=== PATIENT | female | born 1965 | race Caucasian/White ===

== ENCOUNTER 2019-11-08 16:13 | Emergency (ER) | payer BC, SELFPAY ==
[2019-11-08] VITALS (36 sets, daily range): BP systolic 155–191; BP diastolic 84–107; PULSE 82–105; RESP 11–28; O2SAT 95–100
--- NOTE | 2019-11-08 16:24 | W.ED.GENAD ---
Discharge Plan Disposition Patient Disposition: [facility] Condition: Poor Discharge Details Chief Complaint: Chest Pain Clinical Impression: Non-ST elevation MN (NSTEMI) Primary Care Provider: Camacho Urias ED Provider: Shelby Lamb Home Meds and New Rx's Prescriptions: No Action Prilosec OTC 20 mg tablet,delayed release (DR/EC) 20 mg PO HS Qty: 90 RF: 3 gabapentin 300 mg capsule 600 mg PO HS Qty: 270 RF: 3 clonazepam [Klonopin] 0.5 mg tablet 0.5 mg PO BID Qty: 180 RF: 0 Discharge Data Discharge Date/Time-TO BE ENTERED AT DEPARTURE: 11/08/19 20:05 Medical Decision Making Patient is a 54-year-old female presenting today with chief complaint of chest pain. Past medical history anxiety, restless leg. Family history of father and brother both having significant MN in a young age. She reports that symptoms have been present intermittently for the past week. Denies him having any exertional complaints. Does not note any specific etiology that can cause worsening of her symptoms. Is not having pain at this time. Has not noted to be worse with eating. Not worse with activity. States that she initially noted the discomfort when she was sedentary. Describes as a stabbing discomfort. Reports that he can radiate from the right upper quadrant into the central aspect of the chest. She denies any cough. No fevers or chills. No recent travel. Denies any leg pain. No edema. Has not never had discomfort like this historically. Pain can radiate into the arms. On exam, patient is resting comfortably. She does have a systolic murmur noted on cardiac exam. Sinus rhythm. Pulses are equal in all extremities. No abdominal pain on palpation. No chest pain on palpation. Lungs are clear in all rosas. Patient's symptoms are nonexertional. Seems to be more driven by epigastric discomfort than true chest pain. Patient does take omeprazole daily, plan to treat with GI cocktail. I have considered ACS, PE, dissection, versus other. Findings less likely but plan to screen accordingly. ECG reviewed by Dr. Fu, HR 83, NSR, no acute ischemic changes noted. Troponin 0.85, will consult with [facility]. Will start Plavix, Heparin, ASA per ACS protocol. Discussed the risk and benefits of anticoagulation with the patient. Shevoices understanding and would like to proceed. Reviewed PMH and find nno contraindications to these medications. Chest x-ray is reviewed by myself. Not appreciate any widened mediastinum, lungs appear clear. We will medically. Awaiting read from cardiology. Consulted with Dr. Gregory with cardiology at [facility]. He agrees to accept the patient in transfer. He did advise starting the patient on a nitroglycerin drip to help lower her blood pressure, goal of systolic blood pressure being less than 140. Dr. Ngo accepting physician. At the time the patient was transferred to [facility], a repeat troponin was performed and increased further to 1.45. Patient transferred to [facility] via EMS. Continues to be pain-free and resting comfortably. HPI General Mode of arrival: ambulatory. Date/Time Provider Initiated Documentation: 11/08/19 16:24. Limitations to Documentation: no limitations. Information obtained by: patient and RN notes reviewed. History of Present Illness 54 year old F presents to the emergency department with the chief complaint of epigastric and chest pain, described as mild (denies pain at this time, pain can be severe), Quality is described as stabbing, and is localized to the chest and abdomen. Patient reports no radiation. Patient started experiencing this week(s) (1) and it has been intermittent. No relieving factors improve symptom(s), No exacerbating factors reported . Patient notes no other symptoms., chest pain and loss of appetite (reports diminished appetite today); denies cough, diaphoresis, fever/chills, headaches, nausea/vomiting, shortness of breath, syncope and weakness. Patient did receive the following treatments prior to arrival, none Related Data Home Medications Medication Instructions Recorded Confirmed omeprazole magnesium 20 mg 20 mg PO HS #90 tab-cap 11/15/18 11/08/19 tablet,delayed release gabapentin 300 mg capsule 600 mg PO HS #270 tab-cap 06/14/19 11/08/19 clonazepam 0.5 mg tablet 0.5 mg PO BID #180 tab 09/17/19 11/08/19 Previous Rx's Medication Instructions Recorded omeprazole magnesium 20 mg 20 mg PO HS #90 tab-cap 11/15/18 tablet,delayed release gabapentin 300 mg capsule 600 mg PO HS #270 tab-cap 06/14/19 clonazepam 0.5 mg tablet 0.5 mg PO BID #180 tab 09/17/19 Allergies Allergy/AdvReac Type Severity Reaction Status Date / Time sertraline AdvReac Intermediate nausea Verified 11/08/19 16:21 oxycodone AdvReac VOMITING Verified 11/08/19 16:21 paroxetine AdvReac N/V Verified 11/08/19 16:21 General Stated Complaint: Chest Pain CABRERA: 3 Review of Systems Constitutional Constitutional: Reports as per HPI, Denies chills, Denies fever(s), Denies headache(s), Denies lethargy and Denies poor appetite Eyes Eyes: Denies change in vision ENT Ears, Nose, Mouth, and Throat: Denies dizziness and Denies headache(s) Cardiovascular Cardiovascular: Reports as per HPI, Reports chest pain (intermittent, now resolved), Denies chest pain with activity, Denies diaphoresis, Denies syncope, Denies rapid heart rate, Denies irregular heart rhythm, Denies leg edema, Denies lightheadedness, Denies radiating jaw, neck or arm pain, Denies palpitations, Denies dyspnea and Denies dyspnea on exertion Respiratory Respiratory: Reports as per HPI, Denies chest congestion, Denies cough, Denies pain on inspiration, Denies pain with cough, Denies dyspnea, Denies dyspnea on exertion and Denies wheezing Gastrointestinal Gastrointestinal: Reports as per HPI, Reports abdominal pain (epigastric), Denies diarrhea, Denies nausea and Denies vomiting Musculoskeletal Musculoskeletal: Reports as per HPI and Denies back pain Integumentary/Breasts Skin/Breast: Reports as per HPI and Denies rash Neurologic Neurologic: Reports as per HPI, Denies dizziness, Denies syncope and Denies headache(s) Endocrine Endocrine: Denies palpitations Allergic/Immunologic Allergic/Immunologic: Denies wheezing PFSH Surgical History section X 2 Ligation of fallopian tube Family History (Updated 10/14/19 @ 10:57 by Masoud Aragon) Mother , age 76 COPD (chronic obstructive pulmonary disease) Father Myocardial infarction Brother Heart disease Lung cancer Sister Stomach cancer Sister Breast cancer stage 4 Brother Depression Son Substance abuse in recovery since 2010 Daughter No problems noted. Maternal Grandfather , in his 60s No problems noted. Paternal Grandfather , in his 90s No problems noted. Maternal Grandmother , in her 70s No problems noted. Paternal Grandmother , Age 93 No problems noted. Social History Smoking/Tobacco Use Status: Former Tobacco Use Quit Date: 11/06/82 Tobacco: How many years used: 37 Alcohol Intake: never Drug use: Never Substance use type: former substance user Date of last use: as a teen/young adult and marijuana Details: has used marijuana at bedtime to sleep 2 weeks ago Caregiver/Support person: No Household members: children Communication Needs: None Pets and animals: Yes Pets and animals: dog(s) Sexually active: No Do you think of yourself as: straight/heterosexual Current gender identity: female What is your relationship status?: How often do you talk on the phone with friends or family?: three or more times per week How often do you get together with friends or relatives?: three or more times per week How often do you attend sikhism or protestant services?: decline to answer Do you belong to any clubs or organized social groups?: no Panel score (0-1 are the most socially isolated patients): 1 What type of physical activity do you participate in: walking Snow/Tenriism: Zoroastrian Special snow needs: No Seatbelt use: always Helmet use: Yes Helmet use: sometimes Drive intox 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 Do you feel safe at home: Yes Do you feel safe in your relationship?: Yes Exam Const General: cooperative, healthy appearing, comfortable, no acute distress and well developed Nutritional Appearance: well nourished and overweight Orientation: alert, awake and oriented x3 HENMT Head: normal to inspection Ears: hearing grossly normal bilaterally Mouth: moist mucous membranes Chest Chest: normal inspection of the chest, normal palpation of entire chest wall and no crepitus Resp Effort & Inspection: normal respiratory effort, able to speak in complete sentences and no respiratory distress Auscultation: clear to auscultation bilaterally, no rales, no rhonchi and no wheezes Cardio Rate: regular rate Rhythm: regular rhythm Heart Sounds: S1 normal and S2 normal GI Inspection: normal to inspection, no edema, non-distended and obesity Palpation: soft, no hepatosplenomegaly, not firm, no guarding, not rigid and nontender Auscultation: normal bowel sounds Skin General skin exam: no rashes or lesions noted Trauma: no lacerations or abrasions Neuro General: alert, awake and oriented x3 Cognition: normal cognition Speech: speech normal Gait: normal gait Extrem General: normal to inspection, normal capillary refill, no pedal edema, no calf tenderness and normal gait Psych Appearance: grossly normal and well kempt Mental Status: mental status grossly normal Speech and Movement: speech and movement normal Course Vital Signs Vital signs: Vital Signs Pulse 92 H 11/08/19 16:17 Respiratory Rate 18 11/08/19 16:17 Blood Pressure 187/107 H 11/08/19 16:17 Pulse Oximetry 100 11/08/19 16:17 Pulse 92 H 11/08/19 16:17 Respiratory Rate 18 11/08/19 16:17 Blood Pressure 187/107 H 11/08/19 16:17 Pulse Oximetry 100 11/08/19 16:17 Oxygen Delivery Method Room Air 11/08/19 16:17 Oxygen Flow Rate 0 11/08/19 16:17 Pain Level 2 11/08/19 16:17
[2019-11-08 17:05] LABS: Abs Immature Grans 0.02 k/cumm (0.0-0.09); Absolute Basophil Count 0.02 k/cumm (0.0-0.2); Absolute Eosinophil Count 0.16 k/cumm (0.0-0.7); Absolute Lymphocyte Count 2.08 k/cumm (1.2-3.4); Absolute Monocyte Count 0.69 k/cumm (0.11-0.7); Absolute Neutrophil Count 4.99 k/cumm (1.2-6.7); Basophils % 0.3; HCT 32.1 % (36.0-46.0); HGB 9.3 g/dL (12.0-15.5); Immature Grans % 0.3 %; Lymphocytes % 26.1; Mean Corpuscular Hemoglobin 19.5 pg (27.0-33.0); Mean Corpuscular Volume 67.4 fL (80-95); Mean Platelet Volume 9.5 fL (8.0-11.0); Monocytes % 8.7; Neutrophils % 62.6; Platelet Count 331 x1000/uL (130-400); RBC 4.76 m/cumm (4.00-5.20); RBC Distribution Width 19.5 % (11.7-14.6); White Blood Cell Count 7.96 k/cumm (4.4-10.8)
--- NOTE | 2019-11-08 17:10 | DI.RAD_ITS ---
EXAM: XR CHEST 2V PA LATERAL INDICATION: CP. COMPARISON: No exams were available for comparison TECHNIQUE: 2D digital imaging was performed. FINDINGS: Heart size is normal. Aorta is mildly tortuous. Lungs appear clear. IMPRESSION: No acute abnormality.
[2019-11-08 17:11] LABS: Anisocytosis 2+; Diff Comment RBC Morph Reviewed
[2019-11-08 17:12] LABS: Microcytosis 3+
[2019-11-08 17:17] LABS: ALT 25 U/L (14-59); AST 28 U/L (15-37); Albumin 3.7 g/dL (3.4-5.0); Alkaline Phosphatase 83 U/L (46-116); Anion Gap 10.6 mmol/L (3-11); BUN 13 mg/dL (7-18); Bilirubin, Total 0.3 mg/dL (0.2-1.0); CO2 27.4 mmol/L (21.0-32.0); CREATININE 0.77 mg/dL (0.55-1.02); Calcium 8.6 mg/dL (8.5-10.1); Chloride 102 mmol/L (98-107); Glucose 89 mg/dL (74-106); Potassium 3.7 mmol/L (3.5-5.1); Sodium 140 mmol/L (136-145); Total Protein 8.1 g/dL (6.4-8.2)
[2019-11-08 17:18] LABS: Troponin I 0.85 ng/Ml (<0.06)
[2019-11-08 17:38] LABS: PTT Activated 24.8 sec (21.0-31.4); Prothrombin Time 10.4 sec (9.3-11.0)
[2019-11-08] MEDS: Aspirin 81 MG CHEW 324 MG CH (17:40)
[2019-11-08] MEDS: Clopidogrel 300 MG TAB PO (17:40)
--- NOTE | 2019-11-08 17:55 | DI.VRAD_ITS ---
PROCEDURE INFORMATION: Exam: XR Chest, 2 Views Exam date and time: 11/08/2019 5:15 PM Age: 54 years old Clinical indication: Other: Cp TECHNIQUE: Imaging protocol: XR of the chest Views: 2 views. COMPARISON: CR ABD FLAT UPRIGHT PA CHEST 12/08/2014 7:17 PM FINDINGS: Lungs: Unremarkable. No consolidation. Pleural space: Unremarkable. No pleural effusion. No pneumothorax. Heart/Mediastinum: Unremarkable. No cardiomegaly. Bones/joints: Unremarkable. IMPRESSION: No acute findings. Dictated and Authenticated by: Niraj Bae MD. Ordering:CICI Ryan MD
[2019-11-08 19:53] LABS: Troponin I 1.45 ng/Ml (<0.06)
== END 2019-11-08 20:05 | disposition short-term general hospital (02) ==
LOC: ER 16:42
PROVIDERS: Emergency Provider Physician Assistant; PCP Emergency Medicine
DX: I21.4 Non-ST elevation (NSTEMI) myocardial infarction (principal); R03.0 Elevated blood-pressure reading, without diagnosis of hypertension
CPT/HCPCS: 80053; 93005; 96365; 96366; 96376; 99285; 71046; 83735; 84484; 85025; 85610; 85730; 93010

== ENCOUNTER 2019-11-13 07:00 | Outpatient (CLI) | payer BC, SELFPAY ==
[2019-11-13 10:34] LABS: Abs Immature Grans 0.09 k/cumm (0.0-0.09); Absolute Basophil Count 0.04 k/cumm (0.0-0.2); Absolute Eosinophil Count 0.08 k/cumm (0.0-0.7); Absolute Lymphocyte Count 1.98 k/cumm (1.2-3.4); Absolute Monocyte Count 0.81 k/cumm (0.11-0.7); Basophils % 0.3; Eosinophils % 0.7; HCT 36.5 % (36.0-46.0); HGB 10.8 g/dL (12.0-15.5); Immature Grans % 0.8 %; Lymphocytes % 16.9; Mean Corp. HGB Concentration 29.6 g/dL (32.0-36.0); Mean Corpuscular Volume 67.5 fL (80-95); Mean Platelet Volume 9.8 fL (8.0-11.0); Monocytes % 6.9; Neutrophils % 74.4; RBC 5.41 m/cumm (4.00-5.20); RBC Distribution Width 20.8 % (11.7-14.6); White Blood Cell Count 11.74 k/cumm (4.4-10.8)
[2019-11-13 10:35] LABS: Absolute Neutrophil Count 8.73 k/cumm (1.2-6.7)
[2019-11-13 11:18] LABS: Iron 23 ug/dL (50-170); Total Iron Binding Capacity 445 ug/dL (250-450); Transferrin Sat 5 % (15-50)
[2019-11-13 11:32] LABS: Ferritin 9 ng/mL (8-252)
[2019-11-13 11:55] LABS: Platelet Count 404 x1000/uL (130-400)
[2019-11-13 11:56] LABS: Anisocytosis 2+; Diff Comment RBC Morph Reviewed; Hypochromasia 3+; Microcytosis 3+; Polychromasia Present
[2019-11-21 13:41] LABS: Lyme Ab w Rflx to Lyme Confirm Positive (Negative)
[2019-11-21 15:32] LABS: IgG Immunoblot Negative (Negative); IgM Band(s) p41; IgM Immunoblot Positive (Negative)
[2019-11-21 15:49] LABS: IgA 378 mg/dL (85-499); Tissue Transglutaminase IgA 2.9 U/mL (<4.0)
== END 2019-11-13 07:20 ==
PROVIDERS: PCP Emergency Medicine; Visit Provider Emergency Medicine
DX: D64.9 Anemia, unspecified (principal); M25.50 Pain in unspecified joint
CPT/HCPCS: 36415; 82784; 83516; 86617; 82728; 83540; 83550; 85025; 86618

== ENCOUNTER 2019-11-13 10:40 | Emergency (ER) | payer BC, SELFPAY ==
[2019-11-13 10:46] VITALS: BP 141/96; PULSE 120; RESP 16; TEMP 36.7; O2SAT 98
[2019-11-13] MEDS: Ondansetron O.D.T. 4 MG TABEF PO (11:30)
--- NOTE | 2019-11-13 11:31 | ED.GENADUL_ITS ---
Discharge Plan Disposition Patient Disposition: HOME Condition: Stable Discharge Details Chief Complaint: GenMedical Clinical Impression: Anemia, Nausea Primary Care Provider: Camacho Urias ED Provider: Phil De La Rosa Home Meds and New Rx's Prescriptions: New ondansetron HCl [Zofran] 4 mg tablet 4 mg PO Q6H Qty: 10 RF: 0 No Action atorvastatin 80 mg tablet 80 mg PO QHS RF: 0 metoprolol succinate 50 mg tablet extended release 24 hr 50 mg PO DAILY RF: 0 nitroglycerin 0.4 mg tablet, sublingual 0.4 mg SL Q5-15M PRNRF: 0 Prilosec OTC 20 mg tablet,delayed release (DR/EC) 20 mg PO HS Qty: 90 RF: 3 gabapentin 300 mg capsule 600 mg PO HS Qty: 270 RF: 3 ferrous sulfate 325 mg (65 mg iron) tablet 325 mg PO BID Qty: 90 RF: 1 clonazepam [Klonopin] 0.5 mg tablet 0.5 mg PO BID Qty: 180 RF: 0 Discharge Instructions Instructions: Acute Nausea and Vomiting (ED), Anemia (ED) Additional Instructions: 1. Drink plenty of fluids. Add solids as tolerated 2. Continue all medications as prescribed. 3. Acetaminophen 1000mg every 4 hours (up to 5 time a day) and/or ibuprofen 600mg every 6 hours as needed for fever or pain. 4. Zofran 4 mg on the tongue as needed for nausea. 5. Follow-up as an outpatient for upper endoscopy and colonoscopy. This is being set up and scheduled. Return to the Emergency Department (ED) if your condition worsens, does not improve as expected, or for ANY other concerns. Specifically, return if you have new or uncontrolled pain, worsening fever, difficulty breathing, vomiting, or are unable to drink fluids. Discharge Data Discharge Date/Time-TO BE ENTERED AT DEPARTURE: 11/13/19 12:53 Medical Decision Making 54-year-old with a past medical history which includes recent evaluation for atypical chest pain ultimately felt to be myocarditis/inflammatory. Also has had chronic recurrent anemia of unclear etiology with a negative colonoscopy remotely. Referred here by her PCP after presenting with persistent anemia. Referral was for a likely needed upper endoscopy and colonoscopy. On arrival, patient is essentially asymptomatic and denies any acute changes in bowel habits, melena, hematochezia. Her chest pain has resolved since management here and at [facility]. Nondiagnostic EKG, hemoglobin improved from previous management. Multiple re-evaluations with patient remaining stable in ED. Discussed inpatient versus outpatient assessment of her chronic recurrent blood loss anemia. Discharged with plan for outpatient GI follow-up. Given usual and customary return instructions prior to discharge. Medical Records Medical records reviewed: Yes I reviewed the patient's medical records. Lab Data Lab results narrative: Abnormal Labs 11/13/19 12:10 WBC 11.37 H RBC 5.25 H Hgb 10.2 L Hct 35.3 L MCV 67.2 L MCH 19.4 L MCHC 28.9 L RDW 20.7 H Absolute Neutrophils 8.48 H Absolute Monocytes 0.90 H ECG Data Attestation: I personally reviewed and interpreted this ECG (s) as follows: Prior ECG tracings: available for review Interpretation: NSR. Normal axis intervals no acute ST changes. HPI 54-year-old woman with a past medical history which includes recent atypical chest pain ultimately diagnosed at [facility] as myocarditis. She was initially evaluated here for chest pain and had an elevated troponin. Transferred down to [facility] where she had a nondiagnostic catheterization and cardiac MRI. Ultimately diagnosed with myocarditis and was started on beta-blockers, statins, and aspirin. Since her disposition from there, she has been asymptomatic with no further chest pain or dyspnea. She has had nausea associated with taking her omeprazole and it notes that she had been on antiemetic while at [facility]. Today she was advised by her PCP who noted persistent microcytic anemia with hemoglobin = 9. She had similar anemia in 2015 with a negative colonoscopy. Rectal exam was significant for equivocal heme positive. Of note, he has had a previous colonoscopy for referred here for further evaluation. On evaluation here, she describes feeling clinically at baseline and has had no symptoms since her discharge from [facility] except for nausea/retching associated with one oral medication. She denies all abdominal pain,, chest pain, dyspnea. General Date/Time Provider Initiated Documentation: 11/13/19 11:19 . Related Data Home Medications Medication Instructions Recorded Confirmed omeprazole magnesium 20 mg 20 mg PO HS #90 tab-cap 11/15/18 11/13/19 tablet,delayed release gabapentin 300 mg capsule 600 mg PO HS #270 tab-cap 06/14/19 11/13/19 atorvastatin 80 mg tablet 80 mg PO QHS 11/13/19 11/13/19 metoprolol succinate 50 mg 50 mg PO DAILY 11/13/19 11/13/19 tablet,extended release 24 hr nitroglycerin 0.4 mg sublingual 0.4 mg SL Q5-15M PRN 11/13/19 11/13/19 tablet ondansetron HCl [Zofran] 4 mg PO Q6H #10 tab 11/13/19 clonazepam 0.5 mg tablet 0.5 mg PO BID #180 tab 11/15/19 ferrous sulfate 325 mg (65 mg 325 mg PO BID #90 tab 11/15/19 iron) tablet Previous Rx's Medication Instructions Recorded omeprazole magnesium 20 mg 20 mg PO HS #90 tab-cap 11/15/18 tablet,delayed release gabapentin 300 mg capsule 600 mg PO HS #270 tab-cap 06/14/19 ondansetron HCl [Zofran] 4 mg PO Q6H #10 tab 11/13/19 clonazepam 0.5 mg tablet 0.5 mg PO BID #180 tab 11/15/19 ferrous sulfate 325 mg (65 mg 325 mg PO BID #90 tab 11/15/19 iron) tablet Allergies Allergy/AdvReac Type Severity Reaction Status Date / Time sertraline AdvReac Intermediate nausea Verified 11/13/19 09:21 oxycodone AdvReac VOMITING Verified 11/13/19 09:21 paroxetine AdvReac N/V Verified 11/13/19 09:21 General Stated Complaint: GenMedical CABRERA: 2 Review of Systems All systems reviewed & are unremarkable except as noted in HPI and below PFSH Surgical History section X 2 Ligation of fallopian tube Family History Mother , age 76 COPD (chronic obstructive pulmonary disease) Father Myocardial infarction Brother Heart disease Lung cancer Sister Stomach cancer Sister Breast cancer stage 4 Brother Depression Son Substance abuse in recovery since 2010 Daughter No problems noted. Maternal Grandfather , in his 60s No problems noted. Paternal Grandfather , in his 90s No problems noted. Maternal Grandmother , in her 70s No problems noted. Paternal Grandmother , Age 93 No problems noted. Social History Smoking/Tobacco Use Status: Former Tobacco Use Quit Date: 11/06/82 Tobacco: How many years used: 37 Alcohol Intake: never Drug use: Never Substance use type: former substance user Date of last use: as a teen/young adult and marijuana Details: has used marijuana at bedtime to sleep 2 weeks ago Caregiver/Support person: No Household members: children Communication Needs: None Pets and animals: Yes Pets and animals: dog(s) Sexually active: No Do you think of yourself as: straight/heterosexual Current gender identity: female What is your relationship status?: How often do you talk on the phone with friends or family?: three or more times per week How often do you get together with friends or relatives?: three or more times per week How often do you attend mormonism or restorationist services?: decline to answer Do you belong to any clubs or organized social groups?: no Panel score (0-1 are the most socially isolated patients): 1 What type of physical activity do you participate in: walking Snow/Jain: Sikh Special snow needs: No Seatbelt use: always Helmet use: Yes Helmet use: sometimes Drive intox or ride w/intox non cdl driver: No Do you feel safe at home: Yes Do you feel safe in your relationship?: Yes Exam Narrative Exam Narrative: Nursing note and vital signs have been reviewed and noted. GENERAL: alert, active, no acute distress, well -hydrated, well-nourished HEENT: atraumatic/normocephalic, PERRLA, EOMI, conjunctiva clear, external ears/canals normal, nasal mucosa normal NECK: supple, full range of motion, no mass, normal lymphadenopathy, no thyromegaly CARDIOVASCULAR: RRR, no murmurs, nl pulses, no edema PULMONARY: nl effort, no audible wheezing or stridor, nl breath sounds with no focal deficit. no chest wall tenderness ABDOMEN: soft, non-tender, non-distended, no mass, no organomegaly EXTREMITY: normal muscle tone, all joints with FROM, no deformity or tenderness SKIN: no exanthem appreciated NEURO: gross motor exam normal, normal stance and gait PSYCH: alert and oriented, Course Vital Signs Vital signs: Vital Signs Temperature 98.1 F 11/13/19 10:46 Pulse 120 H 11/13/19 10:46 Respiratory Rate 16 11/13/19 10:46 Blood Pressure 141/96 H 11/13/19 10:46 Pulse Oximetry 98 11/13/19 10:46 Temperature 98.1 F 11/13/19 10:46 Temperature Source Temporal Artery Scan 11/13/19 10:46 Pulse 120 H 11/13/19 10:46 Respiratory Rate 16 11/13/19 10:46 Blood Pressure 141/96 H 11/13/19 10:46 Blood Pressure Position Sitting 11/13/19 10:46 Pulse Oximetry 98 11/13/19 10:46 Oxygen Delivery Method Room Air 11/13/19 10:46 Oxygen Flow Rate 0 11/13/19 10:46 Pain Level 0 11/13/19 10:46
[2019-11-13 12:15] LABS: Abs Immature Grans 0.05 k/cumm (0.0-0.09); Absolute Basophil Count 0.03 k/cumm (0.0-0.2); Absolute Eosinophil Count 0.05 k/cumm (0.0-0.7); Absolute Lymphocyte Count 1.86 k/cumm (1.2-3.4); Absolute Neutrophil Count 8.48 k/cumm (1.2-6.7); Basophils % 0.3; Eosinophils % 0.4; HCT 35.3 % (36.0-46.0); HGB 10.2 g/dL (12.0-15.5); Immature Grans % 0.4 %; Lymphocytes % 16.4; Mean Corp. HGB Concentration 28.9 g/dL (32.0-36.0); Mean Corpuscular Hemoglobin 19.4 pg (27.0-33.0); Mean Corpuscular Volume 67.2 fL (80-95); Mean Platelet Volume 9.6 fL (8.0-11.0); Monocytes % 7.9; Neutrophils % 74.6; Platelet Count 354 x1000/uL (130-400); RBC 5.25 m/cumm (4.00-5.20); RBC Distribution Width 20.7 % (11.7-14.6); White Blood Cell Count 11.37 k/cumm (4.4-10.8)
[2019-11-13 12:27] LABS: Anisocytosis 2+; Diff Comment RBC Morph Reviewed; Hypochromasia 3+; Microcytosis 3+; Polychromasia Present
[2019-11-13 12:46] VITALS: BP 148/96; PULSE 97; RESP 20; TEMP 37.2; O2SAT 98
--- NOTE | 2019-11-13 19:36 | NUR.NOTE ---
faxed referal to general surgery 11/13/19Nursing Note:
== END 2019-11-13 12:53 | disposition home or self-care (01) ==
PROVIDERS: Emergency Provider Emergency Medicine; PCP Emergency Medicine
DX: D50.9 Iron deficiency anemia, unspecified (principal)
CPT/HCPCS: 36415; 93005; 99284; 85025; 93010; 99285

== ENCOUNTER 2019-12-31 02:15 | Outpatient (RCR) | payer BC, SELFPAY ==
[2019-12-20] MEDS: Normal Saline Flush 10 ML SYR IVP ×2 (10:25→10:39)
[2019-12-20] MEDS: IRON SUCROSE COMPLEX 200 MG in Normal Saline 100 ML 440 MG IVPB (10:25)
[2019-12-25] MEDS: IRON SUCROSE COMPLEX 200 MG in Normal Saline 100 ML 440 MG IVPB (08:02)
[2019-12-25] MEDS: Normal Saline Flush 10 ML SYR IVP (08:03)
[2019-12-27] MEDS: Normal Saline Flush 10 ML SYR IVP (10:37)
[2019-12-27] MEDS: IRON SUCROSE COMPLEX 200 MG in Normal Saline 100 ML 440 MG IVPB (10:37)
[2019-12-31] MEDS: IRON SUCROSE COMPLEX 200 MG in Normal Saline 100 ML 440 MG IVPB (10:17)
[2019-12-31] MEDS: Normal Saline Flush 10 ML SYR IVP (10:17)
== END 2020-01-04 23:59 | disposition home or self-care (01) ==
LOC: INF 02:15
PROVIDERS: PCP Nurse Practitioner; Visit Provider Nurse Practitioner
DX: D64.9 Anemia, unspecified (principal)
CPT/HCPCS: 96365; J1756

== ENCOUNTER 2019-12-31 08:43 | Outpatient (CLI) | payer BC, SELFPAY | END 2019-12-31 09:03 | PROVIDERS: PCP Nurse Practitioner; Visit Provider Internal Medicine Cardiovascular Disease | DX: I25.2 Old myocardial infarction (principal); I51.4 Myocarditis, unspecified; I10 Essential (primary) hypertension | CPT/HCPCS: 93005; 93010 ==

== ENCOUNTER 2020-01-06 01:37 | Outpatient (CLI) | payer BC, SELFPAY ==
--- NOTE | 2020-01-06 16:20 | DI.MAMMO_ITS ---
EXAM: MAMMO SCREENING CLINICAL HISTORY: screening, Z12.39 TECHNIQUE: Mammograms were interpreted according to the usual protocol including computer analysis w [employer] CAD system, tomosynthesis and C-view imaging. COMPARISON: 2011 through 2016 FINDINGS: The breasts are composed of mainly fatty density , Breast Density category A. No suspicious masses or suspicious microcalcifications are seen. No skin thickening or abnormal axillary lymph nodes are seen. There has been no significant change from prior exams. IMPRESSION: BIRADS Category 1, negative mammogram. Yearly screening mammography is recommended. Breast density category A.
== END 2020-01-06 01:57 ==
PROVIDERS: PCP Nurse Practitioner; Visit Provider Emergency Medicine
DX: Z12.31 Encounter for screening mammogram for malignant neoplasm of breast (principal)
CPT/HCPCS: 77063; 77067

== ENCOUNTER 2020-01-06 01:50 | Outpatient (RCR) | payer BC, SELFPAY ==
[2020-01-06] MEDS: IRON SUCROSE COMPLEX 200 MG in Normal Saline 100 ML 440 MG IVPB (09:33)
[2020-01-06] MEDS: Normal Saline Flush 10 ML SYR IVP (09:33)
== END 2020-02-04 23:59 | disposition home or self-care (01) ==
LOC: INF 01:50
PROVIDERS: PCP Nurse Practitioner; Visit Provider Nurse Practitioner
DX: D64.9 Anemia, unspecified (principal)
CPT/HCPCS: 96365; J1756

== ENCOUNTER 2020-04-15 00:56 | Outpatient (CLI) | payer BC, SELFPAY ==
--- NOTE | 2020-04-15 08:33 | DI.US_ITS ---
APPROVED REPORT EXAM: Comprehensive 2D, Doppler, and color-flow Echocardiogram Patient Location: Out-Patient Access Spec: Jessica Quezada RDCS (AE) Indications: Myocarditis Other Information Study Quality: Adequate Conclusion Left Ventricle : The left ventricle is normal size. The left ventricular systolic function is normal. The left ventricular ejection fraction is within the normal range. Borderline concentric left ventri cular hypertrophy. There is normal LV segmental wall motion. The left ventricular diastolic function is normal. LVEF is 50%. Right Ventricle : The right ventricle is normal size. The right ventricular systolic function is norm al. Atria : The left atrium size is normal. The right atrium size is normal. Valves: There are no hemodynamically significant valvular lesions. Great Vessels : IVC is normal in size and collapses >50% with inspiration. There is no prior echocardiogram available for comparison. Wall motion Left Ventricle The left ventricle is normal size. The left ventricular systolic function is normal. The left ventric ular ejection fraction is within the normal range. Borderline concentric left ventricular hypertrophy . There is normal LV segmental wall motion. The left ventricular diastolic function is normal. There is no ventricular septal defect visualized. LVEF is 50%. Right Ventricle The right ventricle is normal size. The right ventricular systolic function is normal. Atria The left atrium size is normal. The right atrium size is normal. The interatrial septum is intact wit h no evidence for an atrial septal defect. Aortic Valve Aortic valve is trileaflet. There is no aortic valvular stenosis. No aortic regurgitation is present. Mitral Valve There is mitral annular calcification. No evidence of mitral valve stenosis. Trace mitral regurgitati on. Tricuspid Valve The tricuspid valve is normal in structure. There is no tricuspid valve stenosis. Trace tricuspid reg urgitation. Unable to assess PA pressure. Pulmonic Valve The pulmonary valve is normal in structure. There is no pulmonic valvular stenosis. There is no pulmo enoch valvular regurgitation. Great Vessels The aortic root is normal in size. The ascending aorta is normal in size. Aortic arch is normal in ca liber. IVC is normal in size and collapses >50% with inspiration. Pericardium There is no pericardial effusion. There is no pleural effusion. 2D Dimensions IVSD d PLAX 1.09 cm F: 0.6-1.0 LV Vol A2C d MOD 72.4 mL LVPW d PLAX 1.09 cm F: 0.6 - 1.0 LV Vol A4C d MOD 58.2 mL LVID d PLAX 4.36 cm F: 3.8 - 5.2 LA vol/ BSA A2C s A-L 14.5 mL/m2 LVDs 3.10 cm F: 2.2 - 3.5 LA vol/ BSA A4C s A-L 12.3 mL/m2 Ao Root d 2.68 cm F: 2.7 - 3.3 LA Vol/ BSA Biplane s A-L 14.4 mL/m2 RA Area A4C 12.55 cm2 LA Area A4C s MOD 11.57 cm2 RA Vol/ BSA A4C s A-L 17.2 mL/m2 LA Area A2C s MOD 11.60 cm2 Ao Asc Diam d 3.01 cm F: 2.3 - 3.1 LV EF A4C MOD 50.1 % LV EF Teichholz 55.5 % LV EF A2C MOD 49.5 % LVEF (Daily's) 49.33 % F: 54 - 74 LV EF Biplane MOD 49.3 % LV Volume 50.54 mL F: 46 - 106 SV 32.98 mL LV Volume Index 25.91 mL/m2 F: 29 - 61 SV Index 16.89 mL/m2 LV Vol Biplane MOD 66.8 mL FS 28.65 % M-Mode TAPSE 2.49 cm (M/F) >1.7 LV Diastology MV E' medial 0.063 (>0.07 m/s) E/A Ratio 0.8 LV E/e MED 7.80 (<14) MV E Vmax 0.49 (0.4-1.3 m/s) MV E' lateral 0.077 (>0.1 m/s) MV A Vmax 0.65 (0.4-1.3 m/s) LV E/e LAT 6.30 (<14) MV E/A Ratio 0.75 MV E/E' medial 7.81 MV E/E' lateral 6.33 Aortic Valve LVOT Area 2.89 cm2 AoV Area Vmax 2.75 cm2 LVOT Vmax 1.08 m/s AoV Area/ BSA (Vmax) 1.41 cm2/m2 LVOT Mean Madi. 0.73 m/s GENE Mean Madi. 2.66 cm2 LVOT Peak Grad 4.6 mmHg GENE Mean Madi. Index 1.36 cm2/m2 LVOT Mean Grad 2.4 mmHg LVOT VTI 0.191 m LVOT Diam s 1.90 cm AoV Vmax 1.14 m/s Velocity Ratio 0.94 AoV Mean Madi. 0.79 m/s AoV Peak Grad 5.2 mmHg LVOT SV 55.37 mL AoV Mean Grad 2.8 mmHg AoV VTI 0.203 m AoV Area VTI 2.73 cm2 AoV Area/ BSA (VTI) 1.40 cm/m2 Mitral Valve MV DT 250 (160-240 msec) MV PHT 73 msec MV Area PHT 3.03 cm2 Pulmonary Valve PV Vmax 1.04 (0.5-1.5 m/s) RVOT Peak Gr. 1.77 mmHg PV Peak Grad 4.3 mmHg RVOT Mean Gr. 0.85 mmHg PV Mean Grad 2.2 mmHg RVOT VTI 0.124 m PV VTI 0.194 m RVOT Vmax 0.67 m/s
== END 2020-04-15 01:16 ==
PROVIDERS: PCP Nurse Practitioner; Visit Provider Internal Medicine Cardiovascular Disease
DX: I51.4 Myocarditis, unspecified
CPT/HCPCS: 93306

== ENCOUNTER 2020-04-15 01:33 | Outpatient (CLI) | payer BC, SELFPAY ==
[2020-04-15 10:39] LABS: HCT 44.3 % (36.0-46.0); HGB 14.8 g/dL (12.0-15.5); Mean Corp. HGB Concentration 33.4 g/dL (32.0-36.0); Mean Corpuscular Hemoglobin 28.9 pg (27.0-33.0); Mean Corpuscular Volume 86.5 fL (80-95); Mean Platelet Volume 9.6 fL (8.0-11.0); Platelet Count 209 x1000/uL (130-400); RBC 5.12 m/cumm (4.00-5.20); RBC Distribution Width 14.9 % (11.7-14.6); White Blood Cell Count 6.29 k/cumm (4.4-10.8)
[2020-04-15 11:02] LABS: Calculated LDL 138 mg/dL (<100); Cholesterol 218 mg/dL (<200); HDL Cholesterol 34 mg/dL (40-60); Triglyceride 231 mg/dL (<150)
== END 2020-04-15 01:53 ==
PROVIDERS: Internal Medicine Cardiovascular Disease; PCP Nurse Practitioner; Visit Provider Nurse Practitioner
DX: D64.9 Anemia, unspecified; I10 Essential (primary) hypertension; I40.9 Acute myocarditis, unspecified
CPT/HCPCS: 36415; 80061; 85027

== ENCOUNTER 2020-06-12 08:55 | Outpatient (REF) | payer SELFPAY ==
--- NOTE | 2020-06-12 08:30 | PAPFT_PTH ---
PATIENT: Valery Dacosta LOC: [facility] U#:[id number] AGE/SX: 54/F ROOM: RE06/12/[address]: Deepti Walter DO : 1965 BED: DIS: 06/12/2020 SPEC #: [id number] RECD: 06/12/20 13:01 STATUS: BINDUFlorian DANNY #: [id number] TRISTAN: 06/12/20 08:[address]: Deepti Walter DEPT: [facility] Cytology RECD BY: Doreen Jamison ENTERED: 06/12/20 13:01 SP TYPE: PAPFT OTHR DR: Alyson Cope, PhD [employer] Tissues: 1 - CX/ENDOCX FOR PAP SMEARS Procedures: PAP THIN PREP/[facility] Screening HPV DNA PROBE Comments: [id number]
== END 2020-06-12 09:15 ==
LOC: LBN 08:55
PROVIDERS: PCP Nurse Practitioner; Visit Provider Obstetrics & Gynecology
DX: Z12.4 Encounter for screening for malignant neoplasm of cervix (principal); Z11.51 Encounter for screening for human papillomavirus (HPV)
CPT/HCPCS: 88142; 87624

== ENCOUNTER 2020-08-28 07:59 | Outpatient (CLI) | payer SELFPAY ==
[2020-08-31 03:47] LABS: Patient Race White; SARS-CoV-2 RNA Undetected (Undetected); SARS-CoV-2 Specimen Source Nasopharynx
== END 2020-08-28 08:19 ==
PROVIDERS: PCP Nurse Practitioner; Visit Provider Nurse Practitioner
DX: Z11.59 Encounter for screening for other viral diseases (principal)
CPT/HCPCS: 87449; U0003

== ENCOUNTER 2021-05-25 02:53 | Outpatient (CLI) | payer BC, SELFPAY ==
[2021-05-25 08:13] LABS: HCT 44.4 % (36.0-46.0); HGB 14.8 g/dL (11.2-15.7); MCH 30.4 pg (27.0-33.0); MCHC 33.3 % (32.0-36.0); MCV 91.2 fL (80-95); MPV 9.4 fL (8.0-11.0); Platelet Count 217 10^3/uL (130-400); RBC 4.87 10^6/uL (3.93-5.22); RDW-SD 43.9 fL; WBC 6.71 10^3/uL (4.4-10.8)
[2021-05-25 08:56] LABS: Calculated LDL 188 mg/dL (<100); Cholesterol 262 mg/dL (<200); HDL Cholesterol 38 mg/dL (40-60); Triglyceride 180 mg/dL (<150)
== END 2021-05-25 02:54 | disposition home or self-care (01) ==
PROVIDERS: PCP Nurse Practitioner; Visit Provider Nurse Practitioner
DX: E78.5 Hyperlipidemia, unspecified (principal); D64.9 Anemia, unspecified
CPT/HCPCS: 36415; 80061; 85027

== ENCOUNTER 2022-01-07 16:29 | Outpatient (CLI) | payer OTHER, SELFPAY ==
--- NOTE | 2022-01-07 06:45 | DI.MAMMO_ITS ---
Exam(s) MAMMO SCREENING EXAM: MAMMO SCREENING CLINICAL HISTORY: screening,z12.39 TECHNIQUE: Bilateral full field digital CC and MLO mammographic images were obtained with 3D tomosyn thesis and utilizing computer aided detection (CAD). COMPARISON: Available for comparison. FINDINGS: Masses/Architectural Distortion: There are few well-circumscribed nodule seen in both breasts. There are stable. No suspicious masses or areas of architectural distortion are identified. Microcalcifications: No suspicious pleomorphic-type are seen. Skin Thickening/Nipple Retraction: None. IMPRESSION: 1. No significant interval change with no specific features of malignancy noted. 2. Unless there is more urgent need, screening mammography is recommended, as per [employer] guidelines. BI-RADS Category 2 - Benign Findings Breast Density - Category B - Scattered areas of fibroglandular density Breast density category C or D implies that the patient has dense breast tissue. Dense breast tissue is very common and is not abnormal but dense breast tissue can make it harder to find cancer on a ma mmogram. Also, dense breast tissue may increase their breast cancer risk. This information about the result of the mammogram report was provided to the patient to raise their awareness. Use this report when you speak with the patient about their risks for breast cancer, which includes their family hist ory. At that time, you may recommend for more screening tests (Ultrasound or MRI) as they might be us eful based on their risk. A negative radiographic report should not delay biopsy if a dominant or clinically suspicious mass is present. Up to ten percent of cancers are not identified on mammography. A negative report may reinforce clinical impression. Adenosis and dense breasts may obscure an underlying neoplasm. False positive reports average 6 to 10%. Patient will receive a letter notifying them of these results.
== END 2022-01-07 16:49 ==
PROVIDERS: PCP Nurse Practitioner; Visit Provider Nurse Practitioner
DX: Z12.31 Encounter for screening mammogram for malignant neoplasm of breast (principal)
CPT/HCPCS: 77063; 77067

== ENCOUNTER 2022-04-21 04:00 | Outpatient (CLI) | payer OTHER, SELFPAY ==
[2022-04-21 08:05] LABS: HCT 45.4 % (36.0-46.0); HGB 15.4 g/dL (11.2-15.7); MCH 30.9 pg (27.0-33.0); MCHC 33.9 % (32.0-36.0); MCV 91 fL (80-95); MPV 9.5 fL (8.0-11.0); Platelet Count 214 10^3/uL (130-400); RBC 4.99 10^6/uL (3.93-5.22); RDW 13.2 % (11.7-14.6); RDW-SD 44.4 fL; WBC 7.65 10^3/uL (4.4-10.8)
[2022-04-21 08:19] LABS: Hemoglobin A1C 5.6 % (<5.7)
[2022-04-21 08:20] LABS: Calculated LDL 156 mg/dL (<100); Cholesterol 224 mg/dL (<200); HDL Cholesterol 41 mg/dL (40-60); Triglyceride 138 mg/dL (<150)
== END 2022-04-21 04:01 | disposition home or self-care (01) ==
LOC: LBO 04:01
PROVIDERS: PCP Nurse Practitioner; Visit Provider Nurse Practitioner
DX: D64.9 Anemia, unspecified (principal); E78.5 Hyperlipidemia, unspecified; Z13.1 Encounter for screening for diabetes mellitus
CPT/HCPCS: 36415; 80061; 85027; 83036

== ENCOUNTER 2025-03-03 00:42 | Outpatient (CLI) | payer BC, SELFPAY ==
[2025-03-03 09:13] LABS: HCT 45.5 % (36.0-46.0); HGB 15.3 g/dL (11.2-15.7); MCH 30.4 pg (27.0-33.0); MCHC 33.6 % (32.0-36.0); MCV 91 fL (80-95); MPV 9.7 fL (8.0-11.0); Platelet Count 235 10^3/uL (130-400); RBC 5.03 10^6/uL (3.93-5.22); RDW 13.1 % (11.7-14.6); RDW-SD 43.4 fL; WBC 8.27 10^3/uL (4.4-10.8)
[2025-03-03 09:58] LABS: ALT 31 U/L (14-59); AST 19 U/L (15-37); Albumin 3.7 g/dL (3.4-5.0); Alkaline Phosphatase 76 U/L (46-116); Anion Gap 10.7 mmol/L (3-11); BUN 15 mg/dL (7-18); Bilirubin, Total 0.5 mg/dL (0.2-1.0); CO2 25.3 mmol/L (21.0-32.0); CREATININE 0.9 mg/dL (0.55-1.02); Calcium 9.3 mg/dL (8.5-10.1); Calculated LDL 132 mg/dL (<100); Chloride 105 mmol/L (98-107); Cholesterol 202 mg/dL (<200); Estimated GFR 73.19 (mL/min/1.73m2); Glucose 112 mg/dL (74-106); HDL Cholesterol 49 mg/dL (>or=50); Sodium 141 mmol/L (136-145); Total Protein 7.8 g/dL (6.4-8.2); Triglyceride 108 mg/dL (<150)
== END 2025-03-03 00:43 | disposition home or self-care (01) ==
LOC: LBO 00:42
PROVIDERS: PCP Nurse Practitioner Family; Visit Provider Nurse Practitioner Family
DX: F41.9 Anxiety disorder, unspecified; F90.9 Attention-deficit hyperactivity disorder, unspecified type; E78.5 Hyperlipidemia, unspecified; D64.9 Anemia, unspecified; G25.81 Restless legs syndrome; G47.00 Insomnia, unspecified
CPT/HCPCS: 36415; 80053; 80061; 85027

== ENCOUNTER 2025-06-19 02:01 | Outpatient (CLI) | payer BC, SELFPAY ==
--- NOTE | 2025-06-19 07:17 | DI.MAMMO_ITS ---
Exam(s) MAMMO SCREENING EXAM: MAMMO SCREENING CLINICAL HISTORY: screening,z12.39 TECHNIQUE: Mammograms were interpreted according to the usual protocol including computer analysis with CAD system, tomosynthesis and C-view imaging. COMPARISON: 2016 through 2021 FINDINGS: The breasts are composed of mainly fatty density , Breast Density category A. No suspicious masses or suspicious microcalcifications are seen. No skin thickening or abnormal axillary lymph nodes are seen. There has been no significant change from prior exams. IMPRESSION: BI-RADS Category 1, Negative mammogram Yearly screening mammography is recommended. Breast Density- Category A - The breast are almost entirely fatty. Breast density Category C or D implies that the patient has dense breast tissue. Dense breast tissue can make it harder to find cancer on a mammogram. Dense breast tissue is also associated with an increased risk of breast cancer. This information about the result of the mammogram report was provided to the patient to raise their awareness. Use this report when you speak with the patient about their risks for breast cancer, which includes their family history. At that time, you may recommend additional screening tests (Ultrasound or MRI) as these tests may add significant information. A negative radiographic report should not delay biopsy if a dominant or clinically suspicious mass is present. Up to ten percent of cancers are not identified on mammography. A negative report may reinforce clinical impression. Adenosis and dense breasts may obscure an underlying neoplasm. False positive reports average 6 to 10%. Patient will receive a letter notifying them of these results.
== END 2025-06-19 02:21 ==
LOC: DI 02:01
PROVIDERS: PCP Nurse Practitioner Family; Visit Provider Nurse Practitioner Family
DX: Z12.31 Encounter for screening mammogram for malignant neoplasm of breast (principal); R92.313 Mammographic fatty tissue density, bilateral breasts
CPT/HCPCS: 77063; 77067